=== PATIENT | male | born 1930 | race Caucasian/White ===

== ENCOUNTER 2017-07-06 09:33 | Outpatient (CLI) | payer MEDICARE, OTHER | END 2017-07-06 09:34 | disposition critical access hospital (66) | LOC: EMS 09:33 | PROVIDERS: ATTEND Surgery | DX: S01.91XA Laceration without foreign body of unspecified part of head, initial encounter (principal); S51.012A Laceration without foreign body of left elbow, initial encounter; W10.9XXA Fall (on) (from) unspecified stairs and steps, initial encounter; Y92.59 Other trade areas as the place of occurrence of the external cause | CPT/HCPCS: A0425; A0429 ==

== ENCOUNTER 2017-07-06 10:05 | Emergency (ER) | payer MEDICARE, OTHER ==
--- NOTE | 2017-07-06 10:13 | ED Physician Documentation ---
PD HPI HEAD INJURY - Stated complaint Stated Complaint: FALL/ HEAD LAC - History obtained from History obtained from: Patient - History of Present Illness Mechanism of head injury: Fell (he says he tripped and fell. [place] okay prior to the fall. No LOC. Struck head but no general headache. 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 No: Intoxicated Similar symptoms before: Has not had sx before Recently seen: Not recently seen Review of Systems Musculoskeletal: denies: Joint pain (has full ROM of elbow without limitation) Neurologic: reports: Head injury. denies: Focal weakness, Numbness, Confused, Altered mental status, Headache PD PAST MEDICAL HISTORY - Past Medical History Cardiovascular: Atrial fibrillation Respiratory: None Neuro: None Endocrine/Autoimmune: None - Past Surgical History Past Surgical History: Yes Cardiovascular: AICD - Present Medications Home Medications: Ambulatory Orders Medication Instructions Recorded Confirmed Warfarin [Coumadin] 2.5 mg PO 1400 01/10/13 01/10/13 - Allergies Allergies/Adverse Reactions: Allergies Allergy/AdvReac Type Severity Reaction Status Date / Time tetanus toxoid, adsorbed Allergy swelling Verified 01/10/13 10:17 - Social History Does the pt smoke?: No Smoking Status: Never smoker Does the pt drink ETOH?: No Does the pt have substance abuse?: No PD ED PE NORMAL - Vitals Vital signs reviewed: Yes - General General: Alert and oriented X 3, No acute distress, Well developed/nourished - HEENT HEENT: PERRL, EOMI, Other (left forehead with abrasion and some swelling. ) - Neck Neck: Supple, no meningeal sign, No bony TTP, No adenopathy - Cardiac Cardiac: No murmur - Respiratory Respiratory: Clear bilaterally - Abdomen Abdomen: Soft, Non tender - Back Back: No spinal TTP - Derm Derm: Normal color, Warm and dry - Extremities Extremities: No tenderness to palpate, Normal ROM s pain, Other (left elbow with 3 cm stellate lac to fatty tissue. Not to joint. No joint effusion. No FB in wound. ) - Neuro Neuro: Alert and oriented X 3, No motor deficit, Normal speech Eye Opening: Spontaneous Motor: Obeys Commands Verbal: Oriented GCS Score: 15 - Psych Psych: Normal mood, Normal affect Results - Vitals Vitals: Vital Signs - 24 hr 07/06/17 07/06/17 10:05 11:42 Heart Rate 77 68 Respiratory 18 14 Rate Blood Pressure 124/74 128/74 O2 Saturation 99 96 Oxygen O2 Source Room air - Labs Labs: Laboratory Tests 07/06/17 10:34 Whole Blood INR 2.4 H - Rads (name of study) elbow xray Radiology: Prelim report reviewed (no fractures nor FB), EMP read contemporaneously head CT Radiology: Prelim report reviewed (no ICH) Procedures - Laceration (location) left elbow Length in cm: 3 Wound type: Stellate Neurovascular status: Sensory intact, Motor intact, Vascular intact Tendon involvement: Tendon intact Anesthesia: Lidocaine 1% with epi Wound Preparation: Wound explored, To the base, Wound edges modified. No: FB identified Skin layer closure: Nylon, Interrupted, Size #-0 - enter number (4), Sutures - enter # (8) Other: Patient tolerated well, No complications, Neurovascular intact Complexity: Simple PD MEDICAL DECISION MAKING - ED course Complexity details: reviewed results, considered differential, d/w patient Departure - Departure Disposition: 01 Home, Self Care Clinical Impression: Anticoagulant long-term use Accidental fall Qualifiers: Encounter type: initial encounter Qualified Code(s): W19.XXXA - Unspecified fall, initial encounter Abrasion head Qualifiers: Encounter type: initial encounter Qualified Code(s): S00.91XA - Abrasion of unspecified part of head, initial encounter Elbow laceration Qualifiers: Encounter type: initial encounter Laterality: left Qualified Code(s): S51.012A - Laceration without foreign body of left elbow, initial encounter Condition: Stable Record reviewed to determine appropriate education?: Yes Instructions: ED Laceration Ext Sutr Stap Tape Follow-Up: [facility] [Provider Group] Comments: It is okay to wash and shower. Clean off the wound twice a day with soap and water, or peroxide and water. Apply some antibiotic ointment to it to keep it moist. Also to watch for signs of infection such as purulence, redness or increasing pain. Return to your primary care or the ER at the specified time for suture removal. Suture removal 10-14 days. Tylenol if needed for pains. Your INR today is 2.4. Discharge Date/Time: 07/06/17 12:00
--- NOTE | 2017-07-06 11:09 | CT Report ---
EXAM: CT HEAD EXAM DATE: 07/06/2017 10:45 AM. CLINICAL HISTORY: Fell and hit head; on coumadin. COMPARISON: None. TECHNIQUE: Multiaxial CT images were obtained from the foramen magnum to the vertex. Reformats: Coron al. IV contrast: None. In accordance with CT protocol optimization, one or more of the following dose reduction techniques w ere utilized for this exam: automated exposure control, adjustment of mA and/or KV based on patient s ize, or use of iterative reconstructive technique. FINDINGS: Parenchyma: No intraparenchymal hemorrhage. No evidence of mass, midline shift, or CT findings of acu te infarction. There is focal encephalomalacia at the inferior medial aspect of the left occipital co rtex, suggestive of remote prior infarct. Miranda-white differentiation is otherwise distinct. Diffuse c hronic microangiopathic white matter changes are evident. Extraaxial Spaces: Normal for age. No 4subdural or epidural collections identified. Ventricles: The ventricles and cortical sulci are enlarged, consistent with age-related tissue loss. Sinuses and orbits: Imaged paranasal sinuses, orbits, and mastoids show no significant abnormality. Bones: No evidence of fracture or acute calvarial defect. There is evidence of remote prior left fron sebastien craniotomy. Other: None. IMPRESSION: 1. Generalized age-related cortical atrophic changes without evidence of acute intracranial abnormali ty. 2. 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 [facility] Referring Provider Line: [phone] SITE ID: [id number]
--- NOTE | 2017-07-06 11:11 | XRAY Preliminary Report ---
Exam: XR ELBOW 3 VIEW LT IMPRESSION: No acute osseous abnormality. There is soft tissue swelling and laceration posterior to t he olecranon process. [facility] SITE ID: [id number]
--- NOTE | 2017-07-06 11:11 | XRAY Report ---
EXAM: LEFT ELBOW RADIOGRAPHY EXAM DATE: 07/06/2017 10:55 AM. CLINICAL HISTORY: Fell and struck elbow. COMPARISON: None. TECHNIQUE: 3 views. FINDINGS: Bones: Normal. No fractures or bone lesions. Joints: Normal. No effusion. No subluxation. Soft Tissues: There is soft tissue swelling posterior to the olecranon process with evidence of lacer ation. IMPRESSION: No acute osseous abnormality. There is soft tissue swelling and laceration posterior to t he olecranon process. [facility] Referring Provider Line: [phone] SITE ID: [id number]
[2017-07-06 11:44] VITALS: BP 128/74
[2017-07-06] MEDS ORDERED: BACITRACIN OINT TOP ONE (11:45)
== END 2017-07-06 12:00 | disposition home or self-care (01) ==
LOC: EDUNIT# → ED 10:05
DX: S51.012A Laceration without foreign body of left elbow, initial encounter (principal); S00.01XA Abrasion of scalp, initial encounter; W01.0XXA Fall on same level from slipping, tripping and stumbling without subsequent striking against object, initial encounter; I48.91 Unspecified atrial fibrillation; Z79.01 Long term (current) use of anticoagulants
CPT/HCPCS: 12002; 70450; 73080; 85610; 99283; A9270

== ENCOUNTER 2017-07-28 02:21 | Outpatient (CLI) | payer OTHER | END 2017-07-28 02:22 | disposition short-term general hospital (02) | LOC: EMS 02:21 | PROVIDERS: ATTEND Surgery | DX: R30.9 Painful micturition, unspecified (principal); R39.9 Unspecified symptoms and signs involving the genitourinary system | CPT/HCPCS: A0425; A0429 ==

== ENCOUNTER 2017-08-07 17:02 | Outpatient (CLI) | payer OTHER ==
--- NOTE | 2017-08-08 16:10 | Ultrasound Report ---
Procedure Date: 08/08/2017 Accession Number: [id number] / [id number] Procedure: US - Head or Neck Soft Tissue CPT Code: FULL RESULT: EXAM: NECK ULTRASOUND EXAM DATE: 08/07/2017 06:20 PM. CLINICAL HISTORY: RIGHT SIDED NECK SWELLING LYMPHADENOPATHY. COMPARISON: None. TECHNIQUE: Real-time sonographic imaging was performed by the die machine operator utilizing color-flow. Multiple patient representative static images were saved for review. FINDINGS: No ultrasonographic findings in palpable region. This is just lateral to the carotids and jugular vein. No adenopathy IMPRESSION: No ultrasonographic findings in area of concern [facility]
== END 2017-08-07 17:03 | disposition home or self-care (01) ==
LOC: DI 17:02
PROVIDERS: ATTEND Internal Medicine
DX: R59.1 Generalized enlarged lymph nodes (principal); R22.1 Localized swelling, mass and lump, neck
CPT/HCPCS: 76536

== ENCOUNTER 2017-08-17 15:08 | Outpatient (CLI) | payer MEDICARE, OTHER ==
--- NOTE | 2017-08-17 17:09 | Ultrasound Report ---
Procedure Date: 08/17/2017 Accession Number: [id number] / [id number] Procedure: US - Bladder CPT Code: FULL RESULT: EXAM: Bladder DATE: 08/17/2017 3:55 PM CLINICAL HISTORY: RESOLVED ACUTE URINARY RETENTION evaluate post void residual volume COMPARISON: None. TECHNIQUE: Real-time scanning was performed with static images obtained. FINDINGS: Bladder: The initial bladder volume was 268 mL. A 131 mL postvoid residual bladder volume is noted. Bilateral ureteral jets documented. Diffusely thickened bladder wall 7 mm. Probable trabeculations present. Prostate: 4.4 x 3.9 x 4.9 cm, volume 43.1 cc IMPRESSION: Urinary 1. Enlarged prostate 2. Moderate post void residual urinary bladder volume 131 cc 3. Thickened urinary bladder wall 7 mm [facility]
== END 2017-08-17 15:09 | disposition home or self-care (01) ==
LOC: DI 15:08
PROVIDERS: ATTEND Internal Medicine
DX: Z09 Encounter for follow-up examination after completed treatment for conditions other than malignant neoplasm (principal); N40.0 Benign prostatic hyperplasia without lower urinary tract symptoms; N32.89 Other specified disorders of bladder
CPT/HCPCS: 76857

== ENCOUNTER 2017-08-22 14:42 | Outpatient (CLI) | payer MEDICARE, OTHER ==
--- NOTE | 2017-08-22 15:05 | XRAY Report ---
Procedure Date: 08/22/2017 Accession Number: [id number] / [id number] Procedure: XRN - Ribs 2 View LT CPT Code: FULL RESULT: EXAM: Ribs 2 View LT DATE: 08/22/2017 3:03 PM CLINICAL HISTORY: POSTERIOR RIB PAIN history of fall COMPARISON: None. TECHNIQUE: 2 views. A marker was placed at the site of maximal tenderness. FINDINGS: Bones: Normal. No fracture or bone lesion. Lungs: No focal opacities evident. No pneumothorax or pleural effusions. Mediastinum: Left subclavian AICD. Other: None. IMPRESSION: No evidence of a displaced rib fracture. [facility]
== END 2017-08-22 14:43 | disposition home or self-care (01) ==
LOC: DI.N 14:42
PROVIDERS: ATTEND Internal Medicine
DX: R07.82 Intercostal pain (principal)

== ENCOUNTER 2017-10-27 18:42 | Outpatient (CLI) | payer MEDICARE, OTHER ==
[2017-10-27 19:32] LABS: FREE T4 (FREE THYROXINE) 0.39 ng/dL (0.58-1.64)
[2017-10-27 20:07] LABS: THYROID STIMULATING HORMONE 89.05 uIU/mL (0.34-5.60)
== END 2017-10-27 18:43 | disposition home or self-care (01) ==
LOC: LAB 18:42
PROVIDERS: ATTEND Internal Medicine
DX: E03.9 Hypothyroidism, unspecified (principal)
CPT/HCPCS: 84439; 84443

== ENCOUNTER 2017-11-12 14:28 | Outpatient (CLI) | payer MEDICARE, OTHER | END 2017-11-12 14:29 | disposition short-term general hospital (02) | LOC: EMS 14:28 | PROVIDERS: ATTEND Surgery | DX: R41.0 Disorientation, unspecified (principal) | CPT/HCPCS: A0425; A0427; A0888 ==

== ENCOUNTER 2018-03-02 18:22 | Outpatient (CLI) | payer MEDICARE, OTHER ==
--- NOTE | 2018-03-02 19:36 | XRAY Report ---
Reason: PNEUMONIA, UNSPECIFIED ORGANISM Procedure Date: 03/02/2018 Accession Number: [id number] / [id number] Procedure: XR - Chest 2 View X-Ray CPT Code: 12982 FULL RESULT: EXAM: CHEST RADIOGRAPHY EXAM DATE: 03/02/2018 07:12 PM. CLINICAL HISTORY: PNEUMONIA, UNSPECIFIED ORGANISM. COMPARISON: RIBS 2 VIEW LT 08/22/2017 3:01 PM. TECHNIQUE: 2 views. FINDINGS: Internal cardiac defibrillator with battery pack projecting over the lateral left chest and device lead terminating in the right ventricle. The heart is mildly enlarged. Calcified plaques in the thoracic aorta. The descending thoracic aorta is tortuous. No consolidation, pleural effusion, or pneumothorax. Streaky scarring/atelectasis in the lung bases. Coarse parenchymal markings bilaterally may be related to chronic lung disease. The bones are osteopenic. IMPRESSION: Mild cardiomegaly. No focal consolidation visualized. Streaky scarring/atelectasis in the lung bases. [facility] The call report notification system was initiated by Dr. Brendan Alexandra at 19:31 hrs on 03/02/18. The above findings were discussed with Tomer Moss by Dr. Brendan Alexandra at 19:34 hrs on 03/02/18.
[2018-03-02 19:39] LABS: BASOPHILS % (AUTO) 0.4 %; EOSINOPHILS % (AUTO) 0.5 %; HGB - HEMOGLOBIN 11.5 g/dL (14.0-18.0); LYMPHOCYTES # (AUTO) 0.7 10^3/uL (1.5-3.5); LYMPHOCYTES % (AUTO) 13.3 %; MEAN CORPUSCULAR HGB CONC 32.5 g/dL (32.0-36.0); MEAN CORPUSCULAR VOLUME 101.7 fL (80.0-94.0); MEAN PLATELET VOLUME 8.2 fL (7.4-11.4); MONOCYTES # (AUTO) 0.8 10^3/uL (0.0-1.0); MONOCYTES % (AUTO) 14.4 %; NEUTROPHILS % (AUTO) 71.4 %; PLT - PLATELET COUNT 180 10^3/uL (130-450); RED BLOOD COUNT 3.48 10^6/uL (4.70-6.10); RED CELL DISTRIBUTION WIDTH 15.9 % (12.0-15.0); WHITE BLOOD COUNT 5.6 x10^3/uL (4.8-10.8)
[2018-03-02 19:40] LABS: BILIRUBIN,URINE NEGATIVE (NEGATIVE); GLUCOSE, URINE (UA) NEGATIVE (NEGATIVE); KETONES,URINE (UA) NEGATIVE (NEGATIVE); LEUKOCYTE ESTERASE, URINE NEGATIVE (NEGATIVE); NITRITE,URINE NEGATIVE (NEGATIVE); OCCULT BLOOD,URINE NEGATIVE (NEGATIVE); PROTEIN,URINE NEGATIVE (NEGATIVE); UROBILINOGEN,URINE 1 (NORMAL) E.U./dL (NORMAL)
[2018-03-02 19:42] LABS: CLARITY,URINE CLEAR (CLEAR)
[2018-03-02 19:47] LABS: CALCIUM 8.4 mg/dL (8.5-10.3); CREATININE 1.6 mg/dL (0.6-1.2)
[2018-03-02 19:57] LABS: BACTERIA,URINE Rare /HPF (None Seen); CASTS, URINE 3-5 Hyaline Casts /LPF; MUCUS,URINE Few Strands; SQUAMOUS EPITHELIAL CELL,UR RARE Squamous (<= Few)
== END 2018-03-02 18:23 | disposition home or self-care (01) ==
LOC: LAB 18:22 → DI 18:23
PROVIDERS: ATTEND Specialist
DX: J18.9 Pneumonia, unspecified organism (principal); N39.0 Urinary tract infection, site not specified; E03.9 Hypothyroidism, unspecified; I51.7 Cardiomegaly
CPT/HCPCS: 36415; 71046; 80048; 81001; 84443; 85025; 87086

== ENCOUNTER 2018-05-12 13:40 | Outpatient (CLI) | payer MEDICARE, OTHER | END 2018-05-12 13:41 | disposition short-term general hospital (02) | LOC: EMS 13:40 | PROVIDERS: ATTEND Surgery | DX: R06.02 Shortness of breath (principal); R07.89 Other chest pain; R53.1 Weakness | CPT/HCPCS: A0425; A0427; A0888 ==

== ENCOUNTER 2018-06-10 09:59 | Outpatient (CLI) | payer MEDICARE, OTHER | END 2018-06-10 10:00 | disposition critical access hospital (66) | LOC: EMS 09:59 | PROVIDERS: ATTEND Surgery | DX: R06.02 Shortness of breath (principal); R53.1 Weakness | CPT/HCPCS: A0425; A0427 ==